=== PATIENT | female | born 1995 | race African-American/Black ===

== ENCOUNTER 2020-12-24 13:45 | Inpatient (IN) ==
[2020-12-24 14:35] LABS: Barbiturates Screen,Urine Negative (Negative); Benzodiazepines Screen,Urine Negative (Negative); Bilirubin,Urine Negative (Negative); Blood, Urine Negative (Negative); Cannabinoid Screen,Urine Negative (Negative); Glucose,Urine (UA) Negative (Negative); Ketones,Urine Negative (Negative); Mucus,Urine Many /LPF (Occasional); Nitrite,Urine Negative (Negative); Opiate Screen,Urine Negative (Negative); Phencyclidine Screen,Urine Negative (Negative); Protein,Urine 30 MG/DL; RBC,Urine 3 /HPF (0-4); Squamous Epithelial Cell,Urine Occasional /HPF (0-10); Urine Appearance CLEAR (Clear); Urine Color Amber (Yellow); Urine Specific Gravity 1.021 (1.001-1.035)
[2020-12-24 15:38] LABS: Basophils # 0.1 10*3/uL (0.0-0.2); Basophils % 0.4 % (0.0-0.8); Eosinophils # 0.1 10*3/uL (0.0-0.87); Eosinophils % 1.3 % (0.00-10.9); Hematocrit 23.5 VOL% (35.7-47.0); Immature Granulocytes % 0.5 %; Immature Granulocytes Absolute 0.06 #; Lymphocytes % 17.5 % (21.3-54.2); Mean Corpuscular HGB Conc 26.4 GM/DL (32-36); Mean Platelet Volume 11.3 FL (9.6-12.0); Monocytes % 8.1 % (1.7-12.7); Neutrophils % 72.2 % (38.7-73.9); Platelet Count 250 T/CUMM (130-400); Red Blood Count 3.51 MC/CUMM (3.8-5.5); Red Cell Distribution Width 19.5 % (9.3-17.3); White Blood Count 11.2 T/CUMM (4-12)
[2020-12-24 15:40] LABS: Hemoglobin 6.2 GM/DL (12.0-16.0)
[2020-12-24 15:42] LABS: Hypochromasia 2+; Microcytosis 1+
[2020-12-24 15:43] LABS: Platelet Estimate Adequate
[2020-12-24] MEDS ORDERED: SODIUM CHLORIDE 0.9% 1,000 ML IV PRN (15:55)
[2020-12-24 16:05] LABS: HIV Antigen/Antibody Result Nonreactive (Nonreactive); Hepatitis B Surface Ag Quant < 0.10 Index; Hepatitis B Surface Ag Result Non-Reactive (NonReactive); Rubella Antibody IgG Result Non-Reactive (NonReactive)
[2020-12-24] MEDS ORDERED: TERBUTALINE 1 MG/1 ML VIAL SUBCUT PRN (21:52)
[2020-12-24] MEDS ORDERED: CITRIC ACID/SODIUM CITRATE 30 ML UDCUP PO ONE (22:08)
[2020-12-24] MEDS ORDERED: FAMOTIDINE 20 MG/2 ML VIAL IV ONE (22:08)
[2020-12-24] MEDS ORDERED: LACTATED RINGERS 1,000 ML IV SCH (22:30)
[2020-12-25] MEDS ORDERED: CITRIC ACID/SODIUM CITRATE 30 ML UDCUP PO ONE (07:21)
[2020-12-25] MEDS ORDERED: FAMOTIDINE 20 MG/2 ML VIAL IV ONE ×2 (07:21→07:25)
[2020-12-25] MEDS ORDERED: OXYTOCIN/LR 20 UNIT/1,000 ML BAG IV ONE ×3 (07:23→11:59)
[2020-12-25] MEDS ORDERED: BUPIVACAINE SPINAL 0.75% 2 ML AMP SPINAL ONE (07:25)
[2020-12-25] MEDS ORDERED: ONDANSETRON 4 MG/2 ML VIAL ONE (07:26)
[2020-12-25] MEDS ORDERED: miSOPROStoL 200 MCG TABLET ONE (07:34)
[2020-12-25] MEDS ORDERED: TRANEXAMIC ACID 1,000 MG/10 ML VIAL ONE (07:34)
[2020-12-25] MEDS ORDERED: CARBOPROST TROMETHAMINE 250 MCG/ML AMP IM ONE (07:35)
[2020-12-25] MEDS ORDERED: METHYLERGONOVINE 0.2 MG/1 ML AMP ONE (07:35)
[2020-12-25] MEDS ORDERED: SODIUM CHLORIDE 0.9% 0 ML IV ONE (07:36)
[2020-12-25 07:55] LABS: Hemoglobin 7.7 GM/DL (12.0-16.0)
[2020-12-25] MEDS ORDERED: ceFAZolin 3,000 MG in SYRINGE 1 EACH IV ONE (09:00)
[2020-12-25] MEDS ORDERED: PHENYLEPHRINE 1 MG/10 ML SYRINGE IV ONE ×4 (10:51→11:53)
[2020-12-25] MEDS ORDERED: SODIUM CHLORIDE 0.9% 1,000 ML IV PRN (11:26)
[2020-12-25] MEDS ORDERED: GLYCOPYRROLATE 0.4 MG/2 ML VIAL ONE (11:43)
[2020-12-25 11:50] LABS: Cord Arterial Blood HCO3 21.2 MMOL/L
[2020-12-25 11:51] LABS: Cord Venous Blood HCO3 23.9 MMOL/L; Cord Venous Blood PCO2 42.4 MMHG; Cord Venous Blood PO2 < 19.0 MMHG
[2020-12-25] MEDS ORDERED: ACETAMINOPHEN INJ 1,000 MG/100 ML VIAL IV ONE (11:54)
[2020-12-25 11:58] LABS: Bilirubin,Urine Negative (Negative); Blood, Urine Negative (Negative); Glucose,Urine (UA) Negative (Negative); Ketones,Urine 80 mg/dL (Negative); Mucus,Urine Few /LPF (Occasional); Nitrite,Urine Negative (Negative); Protein,Urine 30 MG/DL; RBC,Urine <1 /HPF (0-4); Urine Appearance CLEAR (Clear); Urine Color Yellow (Yellow); Urine Specific Gravity 1.024 (1.001-1.035)
[2020-12-25] MEDS ORDERED: ACETAMINOPHEN 325 MG TABLET PO PRN (11:59)
[2020-12-25] MEDS ORDERED: ONDANSETRON 4 MG/2 ML VIAL IV PRN (11:59)
[2020-12-25] MEDS ORDERED: RHO(D) IMMUNE GLOBULIN 300 MCG SYRINGE IM ONE (11:59)
[2020-12-25] MEDS ORDERED: MAGNESIUM HYDROXIDE SUSP 30 ML UDCUP PO PRN (11:59)
[2020-12-25] MEDS ORDERED: SIMETHICONE CHEW 80 MG TABLET PO PRN (11:59)
[2020-12-25] MEDS ORDERED: LACTATED RINGERS 1,000 ML IV SCH (12:00)
[2020-12-25] MEDS ORDERED: HYDROmorphone 2 MG/1 ML VIAL IV PRN (13:32)
[2020-12-25] MEDS ORDERED: diphenhydrAMINE 50 MG/1 ML VIAL IV PRN (13:32)
[2020-12-25] MEDS ORDERED: hydrOXYzine HCL 25 MG/1 ML VIAL IM PRN (13:32)
[2020-12-25] MEDS ORDERED: MEPERIDINE 50 MG/1 ML VIAL ONE (16:26)
[2020-12-25] MEDS ORDERED: MEPERIDINE 50 MG/1 ML VIAL IV PRN (16:38)
[2020-12-25] MEDS: KETOROLAC 30 MG/1 ML VIAL IV SCH (19:30)
[2020-12-25 19:59] LABS: Basophils # 0.1 10*3/uL (0.0-0.2); Basophils % 0.4 % (0.0-0.8); Eosinophils # 0.1 10*3/uL (0.0-0.87); Eosinophils % 0.9 % (0.00-10.9); Hemoglobin 9.4 GM/DL (12.0-16.0); Immature Granulocytes % 0.6 %; Lymphocytes # 2.1 10*3/uL (1.4-4.0); Mean Corpuscular HGB Conc 29.4 GM/DL (32-36); Mean Corpuscular Volume 72.9 FL (87-102); Monocytes % 7.8 % (1.7-12.7); Neutrophils % 77.3 % (38.7-73.9); Platelet Count 174 T/CUMM (130-400); Red Blood Count 4.39 MC/CUMM (3.8-5.5); Red Cell Distribution Width 24.4 % (9.3-17.3); White Blood Count 15.8 T/CUMM (4-12)
[2020-12-25] MEDS: DOCUSATE SODIUM 100 MG CAPSULE PO SCH (23:39)
[2020-12-26] MEDS: KETOROLAC 30 MG/1 ML VIAL IV SCH ×2 (01:14→07:30)
[2020-12-26 08:10] LABS: Basophils % 0.3 % (0.0-0.8); Eosinophils # 0.2 10*3/uL (0.0-0.87); Eosinophils % 1.5 % (0.00-10.9); Hematocrit 29.7 VOL% (35.7-47.0); Hemoglobin 8.9 GM/DL (12.0-16.0); Immature Granulocytes % 0.5 %; Immature Granulocytes Absolute 0.06 #; Lymphocytes # 1.2 10*3/uL (1.4-4.0); Lymphocytes % 9.9 % (21.3-54.2); Mean Corpuscular Volume 73.3 FL (87-102); Monocytes % 8.9 % (1.7-12.7); NRBC # 0.02 10*3/uL; Neutrophils % 78.9 % (38.7-73.9); Platelet Count 159 T/CUMM (130-400); Red Blood Count 4.05 MC/CUMM (3.8-5.5); Red Cell Distribution Width 24.1 % (9.3-17.3)
[2020-12-26 08:19] LABS: Hypochromasia 2+; Microcytosis 1+
[2020-12-26 08:20] LABS: Ovalocytes Slight; Platelet Estimate Adequate; Polychromasia Slight
[2020-12-26] MEDS: MULTIVITAMIN (PRENATAL) TABLET PO SCH (10:04)
[2020-12-26] MEDS: DOCUSATE SODIUM 100 MG CAPSULE PO SCH ×2 (10:04→21:35)
[2020-12-26] MEDS: IBUPROFEN 800 MG TABLET PO PRN ×2 (10:05→15:23)
[2020-12-27] MEDS: IBUPROFEN 800 MG TABLET PO PRN ×2 (00:15→08:54)
[2020-12-27] MEDS ORDERED: MAGNESIUM CITRATE 300 ML BOTTLE PO ONE (02:19)
[2020-12-27] MEDS: DOCUSATE SODIUM 100 MG CAPSULE PO SCH (08:54)
[2020-12-27] MEDS: MULTIVITAMIN (PRENATAL) TABLET PO SCH (08:59)
[2020-12-27] MEDS ORDERED: IRON (CARBONYL)/VIT C/B12/FA TABLET PO SCH (09:00)
[2020-12-27 10:49] VITALS: BP 124/84
== END 2020-12-27 14:45 | disposition home or self-care (01) | DRG 540 ==
LOC: N.LDOUT 13:45 → N.LD 13:54 → N.OB 12-25 16:03
PROVIDERS: ADMIT Obstetrics & Gynecology; ATTEND Obstetrics & Gynecology
PROC: LDCSECT (ICD-10-PCS; 2020-12-25 10:40)